=== PATIENT | male | born 1990 ===

== ENCOUNTER 2017-06-04 13:49 | Emergency (ER) | payer SELFPAY ==
[2017-06-04 14:07] VITALS: TEMP 97.9; O2SAT 99
[2017-06-04] MEDS ORDERED: Lidocaine 1% Inj (20ml) ONE (14:32)
[2017-06-04] MEDS ORDERED: Bacitracin 500 Units/gm Oint Foilpak UD TOP ONE (14:49)
[2017-06-04] MEDS ORDERED: Bacitracin 500 Units/gm Oint Foilpak UD ONE (15:04)
[2017-06-04 15:20] VITALS: BP 120/70; PULSE 64; RESP 18
--- NOTE | 2017-06-04 17:32 | C.PDOC ---
History Of Present Illness 26 year old male presents to the ED with complaints of a laceration to the back of the right leg sustained last night at 7pm. Patient reports he sat onto something metal, did not seek medical treatment, and Tetanus status is unknown. He denies sensory or motor deficits. Time Seen by Provider: 06/04/17 14:11 Chief Complaint (Nursing): Abnormal Skin Integrity History Per: Patient History/Exam Limitations: no limitations Onset/Duration Of Symptoms: Hrs Current Symptoms Are (Timing): Still Present Location Of Injury: Right: Leg (laceration ), Posterior: Leg Quality Of Symptoms: Painful. denies: Swollen, Draining Recent travel outside of the [place]: No Past Medical History Reviewed: Historical Data, Nursing Documentation, Vital Signs Vital Signs: Last Vital Signs Temp 97.9 F 06/04/17 14:04 Pulse 64 06/04/17 15:14 Resp 18 06/04/17 15:14 BP 120/70 06/04/17 15:14 Pulse Ox 99 06/04/17 17:46 Family History: States: Unknown Family Hx - Social History Hx Alcohol Use: No Hx Substance Use: No - Immunization History Hx Tetanus Toxoid Vaccination: No Hx Influenza Vaccination: No Hx Pneumococcal Vaccination: No Review Of Systems Skin: Positive for: Other (laceration to posterior right leg ) Neurological: Negative for: Weakness, Numbness Physical Exam - Physical Exam Appears: Non-toxic, No Acute Distress Skin: Warm, Dry, Other (healing non-bleeding 1 cm laceration to proximal posterior right thigh) Extremity: Normal ROM, Capillary Refill (good capillary refill, less than two seconds ), No Deformity, No Swelling Neurological/Psych: Oriented x3 ED Course And Treatment O2 Sat by Pulse Oximetry: 99 (RA) Progress Note: Patient was given Keflex and Bactracin was applied following laceration repair. Patient instructed to follow up in ED in 2 days for wound check. Patient was given Tetanus vaccine. Laceration - Laceration Repair Posterior right thigh Wound Length (In cm): 1 cm Description Of Wound: Linear Wound Cleansed With: Betadine, Sterile Saline Anesthesia: Lidocaine 1% Wound Examination: Irrigated With Saline, No FB With Wound Exploration, No Tendon Injury With Wound Exploration Wound Closure: Suture (2) Suture Technique And Material Used: Running, Nylon (3-0 Nylon with loose approximation ) Wound Complexity: Simple Disposition - Disposition Referrals: [facility] [Outside] [facility] [Outside] Disposition: HOME/ ROUTINE Disposition Time: 14:40 Condition: IMPROVED Additional Instructions: Thank you for letting us take care of you today. Your provider was Dr. Price. You were treated for a leg laceration. The emergency medical care you received today was directed at your acute symptoms. If you were prescribed any medication, please fill it and take as directed. It may take several days for your symptoms to resolve. Return to the Emergency Department if your symptoms worsen, do not improve, or if you have any other problems. Please contact your doctor or call one of the physicians/clinics you have been referred to that are listed on the Patient Visit Information form that is included in your discharge packet. Bring any paperwork you were given at discharge with you along with any medications you are taking to your follow up visit. Our treatment cannot replace ongoing medical care by a primary care provider (PCP) outside of the emergency department. Thank you for allowing the [email or web address] team to be part of your care today. Return to the emergency room in 2 days for a wound check. Keep area clean and dry. Sutures will have to come out in 7-10 days. Prescriptions: Cephalexin [cephalexin] 500 mg PO Q6 #28 cap Ibuprofen [Motrin] 600 mg PO Q6 PRN #20 tab PRN Reason: Pain, Moderate (4-7) Instructions: Care For Your Stitches (ED) Forms: [employer] (Kazakh) - Clinical Impression Clinical Impression: Skin laceration - Scribe Statement The provider has reviewed the documentation as recorded by the Scribe Kimberly Benjamin All medical record entries made by the Scribe were at my direction and personally dictated by me. I have reviewed the chart and agree that the record accurately reflects my personal performance of the history, physical exam, medical decision making, and the department course for this patient. I have also personally directed, reviewed, and agree with the discharge instructions and disposition.
== END 2017-06-04 15:16 | disposition home or self-care (01) ==
LOC: C.ER 13:49
DX: S81.811A Laceration without foreign body, right lower leg, initial encounter (principal); X58.XXXA Exposure to other specified factors, initial encounter; Z23 Encounter for immunization